=== PATIENT | female | born 1955 | race Caucasian/White ===

== ENCOUNTER 2018-08-02 06:30 | Day surgery (SDC) | payer OTHER ==
[~2018-08-02] VITALS: Ht 177.8 cm; Wt 79.4 kg
[~2018-08-02 06:30] MED LIST: ALPRAZOLAM0.5 MG PO; ASPIRIN325 MG PO; BUPROPION HCL100 MG PO; BUPROPION XL300 MG PO; CALCIUM + VITA1 EACH PO; CLARITIN10 MG PO; DAILY VITAMIN1 EAC2 PO; DOXYCYCLINE HY100 M3 PO; FLUOXETINE HCL20 MG PO; PERCOCET 7.5-31 EACH PO; SERTRALINE HCL100 MG PO; VITAMIN D3400 UNI2 PO
[2018-08-02] MEDS ORDERED: ADVIL200 M1 PO (06:49)
--- NOTE | 2018-08-02 08:11 | NUR ---
08/02/18 0811 Katherin Bojorquez 0808-PATIENT ARRIVED TO PACU ON 3L NC WEANED TO 2L NC O2 SAT 99% PATIENT DROWSY EYES OPEN DENIES PAIN OR NAUSEA. ABDOMEN SOFT ENCOURAGED TO PASS FLATUS. RR EVEN.
--- NOTE | 2018-08-02 14:30 | NUR ---
PT ALERT, ORIENTED AND SOMEWHAT ANXIOUS. SHE HAS HAD PREVIOUS SCOPES, AND IS CONTINUING TO BE DILIGIENT WITH SCOPES, DUE TO FAMILY HISTORY. PT REQUESTED PRAYER, WILL FOLLOW NEEDED
--- NOTE | 2018-08-03 09:07 | OR ---
[facility] [address], [place] [address] Signed DATE OF OPERATION: 08/02/2018 SURGEON: Rosa Millan MD PREOPERATIVE DIAGNOSES: 1. Personal history of colonic polyps. 2. Father with a history of colonic polyps. 3. Sister with a history of colon cancer in her 40s and from the colon cancer. 4. Maternal aunt with Crohn's disease. POSTOPERATIVE DIAGNOSES: 1. Right mid colon biopsy. 2. 5 mm polyp in distal right colon. 3. 3 mm polyps x2 in mid rectum. 4. Minimal sigmoid diverticulosis. 5. Minimal internal hemorrhoids. PROCEDURE PERFORMED: Colonoscopy with hot biopsy. ESTIMATED BLOOD LOSS: None. INDICATIONS: Mary is a 63-year-old female, who presents for followup colonoscopy. Her father had colonic polyps and her sister developed colon cancer and in her 40s. The niece also has a personal history of colonic polyps removed. In addition, her maternal aunt more than likely had Crohn disease. In the meantime, Mary is doing great. She has no lower GI complaints. I gave Mary a booklet on colonoscopy in the office and we reviewed that together along with the risks including, but not limited to gas bloating, crampy abdominal pain, bleeding, perforation, requiring surgery, and missed diagnosis. We also discussed the need for IV conscious sedation. She had expressed understanding and wished to proceed. PROCEDURE NOTE: Mary was taken into our endoscopy suite and placed in the left lateral decubitus position. She was given a total of 7 mg of Versed and 150 mcg of fentanyl to cover the case. A digital rectal exam was performed and this was unremarkable. The adult colonoscope was then introduced and advanced all the around into the cecum under direct visualization of camera without difficulty. We used a little extra sedation and some Electronically Signed By: ROSA MILLAN MD 08/03/18 0907 PATIENT NAME: MARY CHERY OPERATIVE REPORT DATE OF : 59 REPORT #: [id number] PHYSICIAN: ROSA MILLAN MD PCP: FLIP DIAZ MD REPORT IS CONFIDENTIAL AND NOT TO BE RELEASED WITHOUT AUTHORIZATION [facility] [address], [place] [address] Signed abdominal compression to advance the scope down the right colon into the cecum itself. Her prep was good. The scope was then slowly withdrawn. We saw a unusual lesion in the mid right colon, I think it is a little bit of edema from some scope trauma. Nevertheless, we took a biopsy of that for pathologic review. In the distal right colon, we took out a small 5 mm polyp with hot biopsy forceps. We could see a few diverticula in the sigmoid colon, there were [id number] size, few in number, and scattered about. Once in the rectum, there were two tiny 3 mm polyps in the mid rectum, which were easily removed with hot biopsy forceps. Upon retroflexion of scope, she has very minimal internal hemorrhoid tissue. After this, the gas was suctioned out. The colonoscope was removed. Mary tolerated the procedure quite well. RECOMMENDATIONS: I will see Mary back in my office in 7 to 14 days to review her results. I suspect she will stay on the 5-year rotation. Rosa Millan MD ALB/MODL /[id number] cc: MD Rosa Rust MD Jonathan Hitzman, MD Copies: TARIQ SAMAYOA MD, ANDREW L MD HITZMAN, JONATHAN MD ~ Electronically Signed By: ROSA MILLAN MD 08/03/18 0907 PATIENT NAME: MARY CHERY OPERATIVE REPORT DATE OF : 59 REPORT #: [id number] PHYSICIAN: ROSA MILLAN MD PCP: FLIP DIAZ MD REPORT IS CONFIDENTIAL AND NOT TO BE RELEASED WITHOUT AUTHORIZATION
== END 2018-08-02 08:47 | disposition home or self-care (01) ==
LOC: OPS 06:30 → DS 06:30 → OPS 06:45
PROVIDERS: Colon & Rectal Surgery
PROC: 0DBP8ZZ Excision of Rectum, Via Natural or Artificial Opening Endoscopic (ICD-10-PCS; 2018-08-02)
PROC: 0DBK8ZZ Excision of Ascending Colon, Via Natural or Artificial Opening Endoscopic (ICD-10-PCS; principal; 2018-08-02 06:45)
DX: Z12.11 Encounter for screening for malignant neoplasm of colon (principal); K63.5 Polyp of colon; K62.1 Rectal polyp; K57.30 Diverticulosis of large intestine without perforation or abscess without bleeding; K64.8 Other hemorrhoids; F32.9 Major depressive disorder, single episode, unspecified; F41.9 Anxiety disorder, unspecified; J32.9 Chronic sinusitis, unspecified; Z80.0 Family history of malignant neoplasm of digestive organs; Z83.71 Family history of colonic polyps; Z86.010 Personal history of colon polyps; Z79.82 Long term (current) use of aspirin; Z79.899 Other long term (current) drug therapy
CPT/HCPCS: 99153; G0500; J2250; J3010; J7120

== ENCOUNTER 2021-03-05 17:47 | Emergency (ER) | payer OTHER ==
[~2021-03-05] VITALS: Ht 177.8 cm; Wt 79.4 kg
[~2021-03-05 17:47] MED LIST changes: +ADVIL200 M1 PO
[2021-03-05] MEDS ORDERED: ATORVASTATIN CA20 MG PO (18:00)
[2021-03-05] MEDS ORDERED: METOPROLOL TART25 MG PO (19:56)
--- NOTE | 2021-03-06 14:19 | EKG ---
[facility] [address] [facility] [place], [place] [address] Signed Sinus tachycardia with occasional premature ventricular complexes Right atrial enlargement ST elevation, consider inferior injury or acute infarct ACUTE [place] / STEMI Abnormal ECG No previous ECGs available Confirmed by RADHA ALANIS DO ([id number]) on 03/06/2021 2:19:15 PM Electronically Signed By: RADHA ALANIS DO 03/06/21 1419 PATIENT NAME: KELLY CHERY Electrocardiogram DATE OF : 59 PHYSICIAN: RADHA ALANIS DO REPORT #: [id number] REPORT IS CONFIDENTIAL AND NOT TO BE RELEASED WITHOUT AUTHORIZATION
== END 2021-03-05 20:47 | disposition home or self-care (01) ==
LOC: ED 17:47
DX: R00.0 Tachycardia, unspecified (principal); R94.31 Abnormal electrocardiogram [ECG] [EKG]
CPT/HCPCS: 71045; 80053; 83735; 84484; 85025; 93005; 93010; 99285-25

== ENCOUNTER 2023-12-30 16:38 | Emergency (ER) | payer MEDICARE, OTHER ==
[~2023-12-30] VITALS: Ht 177.8 cm; Wt 76.2 kg
[~2023-12-30 16:38] MED LIST changes: +ATORVASTATIN CA20 MG PO; +METOPROLOL TART25 MG PO
[2023-12-30] MEDS ORDERED: FLUOXETINE HCL40 MG PO (17:01)
[2023-12-30 17:21] LABS: BASOPHILS 0.2 % (0-2); EOSINOPHILS 2.1 % (0-6); HEMATOCRIT 43.4 % (35.0-50.0); HEMOGLOBIN 14.4 g/dL (12.0-18.0); LYMPHOCYTES 26.9 % (24-44); MCH 29.5 (27-36); MCHC 33.3 g/dl (30-36); MCV 88.7 fl (81-99); MONOCYTES 7.3 % (0-12); NEUTROPHILS 63.5 % (39-80); PLATELET COUNT 426 K/uL (140-440); RBC 4.89 M/ul (4.3-5.7); RDW 13.4 (10.5-15.0)
[2023-12-30] MEDS ORDERED: METOPROLOL TARTRATE 5 MG/5 ML VIAL IV SCH (17:30)
[2023-12-30 17:36] LABS: ALBUMIN 3.3 g/dL (3.4-5.0); ALBUMIN/GLOBULIN RATIO 0.8 (1.1-2.4); ANION GAP 14.4 (7-21); BILIRUBIN, TOTAL 0.3 ng/dL (0.2-1.0); CALCIUM 9.7 mg/dL (8.5-10.1); POTASSIUM 3.4 mmol/L (3.5-5.1); PROTEIN, TOTAL 7.4 g/dL (6.4-8.2)
[2023-12-30] MEDS ORDERED: METOPROLOL TARTRATE 50 MG TAB PO ONE (18:30)
[2023-12-30] MEDS ORDERED: TOPROL XL25 MG PO (18:44)
[2023-12-30 19:01] VITALS: BP 109/94
--- NOTE | 2023-12-30 21:57 | EKG ---
[facility] [address] [place] [address] Signed Sinus tachycardia with fusion complexes Left anterior fascicular block Cannot rule out Inferior infarct , age undetermined Abnormal ECG When compared with ECG of 05-MAR-2021 17:55, fusion complexes are now present Confirmed by Willian Mcfarland MD () on 12/30/2023 9:57:02 PM Electronically Signed By: WILLIAN MCFARLAND MD 12/30/23 2157 PATIENT NAME: KELLY CHERY Electrocardiogram DATE OF : 59 PHYSICIAN: WILLIAN MCFARLAND MD REPORT #: [id number] REPORT IS CONFIDENTIAL AND NOT TO BE RELEASED WITHOUT AUTHORIZATION
== END 2023-12-30 18:58 | disposition home or self-care (01) ==
LOC: ED 16:38
PROVIDERS: Emergency Medicine
DX: I47.10 Supraventricular tachycardia, unspecified (principal); I48.91 Unspecified atrial fibrillation; Z86.16 Personal history of COVID-19; E78.00 Pure hypercholesterolemia, unspecified; Z79.899 Other long term (current) drug therapy
CPT/HCPCS: 36415; 71045; 80053; 83880; 84484; 85025; 93005; 93010; 96374; 96376; 99285-25

== ENCOUNTER 2025-06-04 07:40 | Day surgery (SDC) | payer MEDICARE, OTHER ==
[2025-05-28 14:07] VITALS: BP 103/64
[~2025-06-04] VITALS: Ht 177.8 cm; Wt 70.0 kg
[~2025-06-04 07:40] MED LIST changes: +ATENOLOL25 MG PO; +CALCIUM500 MG PO; +CEFAZOLIN SODIUM 2 GM/20 ML SYR IV SCH; +COQ-10100 MG PO; +ELIQUIS5 MG PO; +FLUOXETINE HCL40 MG PO; +IBLOOD GLUCOSE TEST STRIP 1 EA TEST VI PRN; +LACTATED RINGER'S 1,000 ML IV SCH; +LIDOCAINE HCL 1% 5 ML SDV INJ ONE; +MAGNESIUM250 M1 PO; +MULTI VITAMIN1 EACH PO; +PERCOCET 5-3251 EACH PO; +TOPROL XL25 MG PO; +VITAMIN D3125 MC2 PO
--- NOTE | 2025-06-04 07:42 | NUR ---
PT ARRIVED IN DEPARTMENT TEARY AND EMOTIONALLY FRAGILE. UPON CONVERSATION PT REVEALED THIS DAY IS THE ANNIVERSARY OF A LOVED-ONE'S AND HER IS UNDERGOING A PROCEDURE IN A DIFFERENT FACILITY. PT STATED, "IT'S A LOT." IT RECRUITER PROVIDED SUPPORTIVE PRESENCE, HOSPITALITY, NORMALIZED PT EXPERIENCE, PROVIDED ANXIETY CONTAINMENT, PROVIDED PRAYER. PT APPEARED CALMER, STATED SHE "FELT BETTER," EXPRESSED BRETT SOURCE OF STRENGTH, GRATITUDE FOR VISIT.
[2025-06-04] MEDS ORDERED: OXYCODONE/APAP 5/325 TAB PO PRN (07:45)
[2025-06-04] MEDS ORDERED: KETOROLAC TROMETHAMINE 30 MG/ML VIAL IV PRN (07:45)
[2025-06-04] MEDS ORDERED: HYDROmorphone HCL 1 MG/ML SYR IV PRN ×2 (07:45→12:00)
[2025-06-04 08:16] VITALS: BP 94/74
[2025-06-04] MEDS ORDERED: KETOROLAC TROMETHAMINE 30 MG/ML VIAL ONE (09:16)
[2025-06-04] MEDS ORDERED: LIDOCAINE HCL 2% 5 ML SDV ONE (09:16)
[2025-06-04] MEDS ORDERED: fentaNYL citrate 100 MCG/2 ML VIAL ONE (09:16)
[2025-06-04] MEDS ORDERED: DEXAMETHASONE SOD PHOS 4 MG/ML VIAL ONE (09:16)
[2025-06-04] MEDS ORDERED: MIDAZOLAM HCL 2 MG/2 ML VIAL ONE (09:45)
[2025-06-04] MEDS ORDERED: PHENYLEPHRINE HCL 10 MG/ML VIAL ONE (10:46)
[2025-06-04] MEDS ORDERED: ACETAMINOPHEN 1,000 MG/100 ML VIAL IV ONE (12:00)
[2025-06-04] MEDS ORDERED: fentaNYL citrate 50 MCG/ML SDV IV PRN (12:00)
[2025-06-04] MEDS ORDERED: MEPERIDINE HCL 25 MG/1 ML VIAL IV PRN (12:00)
[2025-06-04] MEDS ORDERED: NALOXONE HCL 0.4 MG SYR IV PRN (12:00)
--- NOTE | 2025-06-04 12:03 | NUR ---
06/04/25 1203 Laura Beckman PATIENT WAKES SUDDENLY. SHE FOLLOWS INSTRUCTIONS TO OPEN HER MOUTH. ORAL AIRWAY IS REMOVED. OXYGEN IS DISCONTINUED AND SURGICAL BONNET IS REMOVED. PATIENT DENIES PAIN.
[2025-06-04 12:19] VITALS: BP 118/87
--- NOTE | 2025-06-04 12:21 | NUR ---
ICED WATER GIVEN. PATIENT'S SISTER IS AT THE BEDSIDE. PATIENT CONTINUES TO BE TEARFUL. PATIENT'S SISTER IS OFFERING COMFORT. PATIENT IS DRINKING WATER AND TOLERATING THAT WELL.
[2025-06-04 13:15] VITALS: BP 106/85
--- NOTE | 2025-06-04 13:30 | NUR ---
INTO PTS ROOM FOR ROUTINE REASSESSMENT. VS TAKEN. IV SITE ASSESSED, SL'D. PT DENIES NAUSEA OR PAIN WHEN ASKED. STENT STRING/URETHRA VISUALIZED. NO DRAINAGE 1315- NOTED FROM URETHRA. STENT STRING APPEARS FIRMLY ATTACHED TO PTS MONS PUBIS AREA WITH SS. PT TOLERATING PO FLUIDS WELL AND PROVIDED PUDDING AND WONG CRACKERS. PTS SISTER AT BEDSIDE. PTREPORTS URGE TO VOID. PT ASSISTED TO SITTING UP ON EOB AND GIVEN A FEW MINS TO ACCLIMATE TO POSITION CHANGE, PT REPORTS DIZZINESS. PT THEN ASSISTED TO STANDING POSITION AND GIVEN MOMENT TO AGAIN ACCLIMATE TO POSITION CHANGE. PT THEM AMBULATED DOWN HALLWAY TO RESTROOM WITH RN ASSISTANCE. 1325-PT ABLE TO VOID APPROX 300 ML OF CAMACHO RED URINE. NO VISIBLE CLOTS NOTED. PT ASSISTED BACK TO BED. CALL LIGHT WITHIN PT REACH. BED IN LOWEST POSITION, WHEELS LOCKED, BILAT RAILS IN PLACE. PTS SISTER REMAINS AT BEDSIDE.
[2025-06-04 14:28] VITALS: BP 82/67
--- NOTE | 2025-06-04 14:35 | NUR ---
PT RESTING VISITING WITH HER SISTER. PT REPORTS 4/10 AND TOLERABLE. PT DENIES NAUSEA. STATES SHE WOULD LIKE ANOTHER PUDDING CUP. BP LOW IV FLUIDS RESTARTED. PT REPORTS FEELING VERY COLD VLADIMIR HUGGER PLACED BETWEEN BLANKETS. CALL LIGHT WITH IN REACH.
--- NOTE | 2025-06-04 14:40 | NUR ---
PUDDING CUP GIVEN PT, ENJOYING PUDDING AND WATCHING TV.
--- NOTE | 2025-06-04 15:20 | NUR ---
1428-INTO PTS ROOM FOR ROUTINE REASESSMENT. VS TAKEN. IV SITE ASSESSED. STENT STRING/URETHRA VISUALIZED. NO ACUTE CHANGES NOTED. BP IS SOFT. PT ENCOURAGED TO INCREASE FLUIDS AND ICE WATER REFILLED. PT CONT TO DENY PAIN OR NAUSEA AND HAS TOLERATED PO FOOD AND FLUIDS WELL. SISTER REMAINS AT BEDSIDE. FALL PREVENTIONS IN PLACE. CALL LIGHT CALI PT REACH. 1445-LOW BP REPORTED TO DR. FRANCIS WELL PTS REPORTS OF FEELING WEAK AND RECENT FALLS AT HOME PRECEEDED BY PTS ADMISSION OF DIZZINESS AND BLURRY VISION WITH POSITION CHANGES. RECEIVED VERBAL ORDER TO BOLUS 1 L OF LR AND HAVE H&H WELL BMP DRAWN. BOLUS OF FLUIDS STARTED. ORDERS ENTERED. LAB CALLED FOR DRAW. 1505-LAB INTO SEE PT. 1515-LAB FINISHED LAB DRAW.
[2025-06-04 15:26] LABS: GLOMERULAR FILTRATION RATE,EST 78.0 mL/min (>60); UREA NITROGEN 14.0 mg/dL (7-18)
[2025-06-04 15:45] VITALS: BP 105/77
[2025-06-04] MEDS ORDERED: SEVOFLURANE 250 ML BTL INH ONE (16:11)
[2025-06-04] MEDS ORDERED: PHENAZOPYRIDINE HCL 100 MG TAB PO ONE (16:15)
[2025-06-04 16:40] VITALS: BP 104/77
--- NOTE | 2025-06-04 16:40 | NUR ---
1530-CALL LIGHT ANSWERED. PT REPORTS URGE TO VOID. FLUID BOLUS COMPLETED. IV SL'D. PT ASSISTED OUT OF BED AND TO RESTROOM. 1540-PT ASSISTED BACK TO BED. PT REPORTS FEELING URGE TO VOID, EVEN THOUGH SHE NO LONGER NEEDS TO AND REPORTS DISCOMFORT IN BLADDER/URETHRA. PT TEARFUL. SISTER REMAINS AT BEDSIDE. VS TAKEN. IV SITE ASSESSED. PT DENIES NAUSEA. STENT STRING/URETHRA VISUALIZED. NO ACUTE CHANGES NOTED FROM PREVIOUS ASSESSMENT. PT PROVIDED WARM BLANKET. ICE WATER REFILLED. CALL LIGHT AND PERSONAL BELONGINGS WITHIN PT REACH. FALL PREVENTIONS IN PLACE. 1600-CALL PLACED TO DR. FRANCIS FOR REQUEST FOR PYRIDIUM. LAB RESULTS AND IMPROVED BP REPORTED TO DR. FRANCIS. VERBAL ORDER RECEIVED FOR 200 MG PO PYRIDIUM ONCE. ORDER ENTERED. DR. FRANCIS WITH INSTRUCTIONS FOR PT TO CALL HER PCP TO SCHEDULE APPT ROXI RELATED LOW BP'S, RECENT FALLS AT HOME, BLURRY VISION AND DIZZINESS WITH POSITION CHANGES, TACHYCARDIA, AND REPORTED WEAKNESS. REFERRAL ORDER PLACED. 162-INTO PTS ROOM WITH PO PYRIDIUM. DISCUSSED NEED TO F/U WITH PCP MENTION ABOVE. PT CALLED PROVIDERS OFFICE WHILE THIS RN IN ROOM. PT WAS INFORMED THAT DR. LOZA IS ON VACATION. SHE ASKED IF THERE WAS ANOTHER PROVIDER SHE COULD SEE INSTEAD. THEY SAID THEY ARE NOT ABLE TO SEE HER UNTIL 06/11/25. PT REPORTED HER CURRENT ISSUES AND CONCERNS WITH LOW BP AND HER HOME MED ATENOLOL. PT ASKED IF SHE COULD BE GIVEN PARAMETERS FOR WHEN TO HOLD THE MEDICATION AND SHE REPORTS THEY WOULD NOT GIVE HER PARAMETERS AND TOLD HER SHE WOULD NEED TO HAVE DR. FRANCIS GIVE HER SOME. PT TOOK APPT FOR THE AND ENDED CALL. 163-DR. FRANCIS UPDATED [facility] COUN[facility] TO PROVIDERS PCP. DR. FRANCIS REPORTS SHE IS NOT ABLE TO PROVIDE HOLD PARAMETERS ON MEDICATION SHE DOES NOT PRESCRIBE. PT ADVISED TO CHECK BP;S AT HOME BEFORE TAKING ATENOLOL OR OPIODS AND SEEK URGENT CARE IF BP'S AND/OR S/SX'S REPORTED CONTINUE. PT AND SISTER VERBALIZED UNDERSTANDING. 1640-ROUTINE REASSESSMENT COMPLETED. VS TAKEN. BP STABLE AT 104/77. IV SITE ASSESSED. PT REPORTS DECREASE IN URETHRAL DISCOMFORT. STRING/URETHRA VISUALIZED AND NO ACUTE CHANGES NOTED. PT DENIES NAUSEA WHEN ASKED. SISTER REMAINS IN ROOM AT BEDSIDE. PT ASKING TO GET DRESSED. PT DECLINES ASSISTANCE REPORTING HER SISTER WILL HELP HER. SISTER, CALL LIGHT, AND PERSONAL BELONGINGS WITHIN PT REACH.
[2025-06-04] MEDS ORDERED: OXYCODONE HCL5 M1 PO (16:49)
[2025-06-04] MEDS ORDERED: CIPRO500 MG PO (16:49)
--- NOTE | 2025-06-04 17:30 | NUR ---
1650-PT ASSISTED TO RESTROOM. 1655-PT ASSISTED BACK TO ROOM. SISTER AT BEDSIDE. CALL LIGHT WITHIN PT REACH AND FALL PREVENTIONS IN PLACE. 1705-INTO PTS ROOM FOR DISCHARGE EDUCATION. PT AND HER SISTER BOTH PROVIDED WRITTEN AND VERBAL DISCHARGE EDUCATION WELL EDUCATIONAL HANDOUTS ON ORTHOSTATIC HYPOTENTION. ALL QUESTIONS ANSWERED. PT ANS SISTER VERBALIZED UNDERSTANDING. PT ADVISED TO CHECK HER BP BEFORE TAKING OPIODS AT HOME TO PREVENT FURTHER DROPS IN BP. PT AND SISTER BOTH VERBALIZED UNDERSTANDING. RX PROVIDED TO PT AND HER SISTER. 1730-PTS SISTER LEFT TO PULL CAR AROUND TO FRONT. IV REMOVED. TIP APPEARS INTACT. PRESSURE DRSG APPLIED WITH GAUZE AND COBAN. ICE WATER REFILLED FOR RIDE HOME.
--- NOTE | 2025-06-04 17:35 | NUR ---
PT DISCHARGED FROM DS VIA WC TO PASSENGER SIDE OF [employer] VEHICLE. ALL PERSONAL BELONGINGS TAKEN WITH PT.
[2025-06-07 05:45] LABS: CALCULI MASS 204 mg (())
== END 2025-06-04 17:35 | disposition home or self-care (01) ==
LOC: DS 07:40 → OPS 07:40 → DS 09:55 → OPS 17:35
PROVIDERS: ATTEND Urology
PROC: 0TC08ZZ Extirpation of Matter from Right Kidney, Via Natural or Artificial Opening Endoscopic (ICD-10-PCS; principal; 2025-06-04 09:55)
DX: N20.0 Calculus of kidney (principal); N35.92 Unspecified urethral stricture, female; Z79.899 Other long term (current) drug therapy; Z79.01 Long term (current) use of anticoagulants
CPT/HCPCS: 00918; 36415; 74420; 80048; 82365; 85014; 85018; C1769; C2617; J0690; J1100; J1885; J2003; J2250; J2371; J2405; J2704; J3010; J7121; Q9967

== ENCOUNTER 2025-07-11 07:30 | Emergency (ER) | payer MEDICARE, OTHER ==
[~2025-07-11] VITALS: Ht 177.8 cm; Wt 74.0 kg
[~2025-07-11 07:30] MED LIST changes: -CEFAZOLIN SODIUM 2 GM/20 ML SYR IV SCH; +CIPRO500 MG PO; -IBLOOD GLUCOSE TEST STRIP 1 EA TEST VI PRN; -LACTATED RINGER'S 1,000 ML IV SCH; -LIDOCAINE HCL 1% 5 ML SDV INJ ONE; +OXYCODONE HCL5 M1 PO
[2025-07-11 07:56] LABS: BLOOD/HGB, URINE NEGATIVE (Negative); KETONE, URINE NEGATIVE (Negative); LEUK ESTERASE, URINE NEGATIVE (negative); NITRITE, URINE NEGATIVE (negative)
[2025-07-11 08:01] LABS: BACTERIA, URINE NONE SEEN /hpf (negative); CASTS, URINE NONE SEEN \\lpf; CRYSTALS, URINE NONE SEEN (0-1+); EPITHELIAL CELLS, URINE 0 /lpf (0-1+); REFLEX CULTURE, URINE No (No)
[2025-07-11] MEDS ORDERED: TRAMADOL HCL50 MG PO (09:28)
[2025-07-11 09:38] VITALS: BP 104/73
== END 2025-07-11 09:39 | disposition home or self-care (01) ==
LOC: ED 07:30
PROVIDERS: Emergency Medicine
DX: R10.9 Unspecified abdominal pain (principal); I48.91 Unspecified atrial fibrillation; Z87.442 Personal history of urinary calculi; Z79.01 Long term (current) use of anticoagulants; Z79.899 Other long term (current) drug therapy
CPT/HCPCS: 74176; 81001; 99284-25